=== PATIENT | male | born 2000 | race Two or more races ===

== ENCOUNTER 2020-01-02 01:29 | Emergency (ER) | payer SELFPAY ==
[~2020-01-02] VITALS: Ht 185.4 cm; Wt 72.6 kg
[2020-01-02 02:04] VITALS: BP 129/82
== END 2020-01-02 02:38 | disposition left against medical advice (07) ==
LOC: EDBD 01:29 → EDSEX 01:29 → ER 01:32
DX: F10.920 Alcohol use, unspecified with intoxication, uncomplicated (principal)